=== PATIENT | male | born 1945 | race Caucasian/White ===

== ENCOUNTER 2023-02-11 14:59 | Emergency (ER) | payer OTHER ==
[2023-02-11] MEDS ORDERED: Boostrix 0.5 ML (Tdap) VIAL (>/=7 yrs of age) ONE (16:21)
== END 2023-02-11 17:02 ==
LOC: CSHERS 14:59 → EEVIPCON 14:59 → CSHERS 17:02
DX: S01.112A Laceration without foreign body of left eyelid and periocular area, initial encounter (principal); K21.9 Gastro-esophageal reflux disease without esophagitis; I10 Essential (primary) hypertension; Z23 Encounter for immunization; W01.0XXA Fall on same level from slipping, tripping and stumbling without subsequent striking against object, initial encounter
CPT/HCPCS: 70450; 70486; 90471; 90715

== ENCOUNTER 2023-06-17 13:18 | Emergency (ER) | payer OTHER ==
[~2023-06-17 13:18] MED LIST: Iopamidol 300 61% 100 ML VIAL FS ONE
[2023-06-17 15:06] LABS: #Eosinphils 0.1 10x3/uL (0.0-0.5); #Monocytes 1.1 10x3/uL (0.0-1.1); #Neutrophils 13.7 10x3/uL (1.5-8.4); %Basophils 0.2 % (0.0-2.0); %Eosinophils 0.4 % (0.0-6.0); %Lymphocytes 7.6 % (18.0-47.0); %Monocytes 6.5 % (0.0-10.0); %Neutrophils 84.4 % (40.0-75.0); Hematocrit 40.3 % (38.8-50.0); Hemoglobin 13.2 g/dL (13.5-17.5); Mean Corpuscular HGB CONC 32.8 g/dL (32.0-36.0); Mean Corpuscular Hemoglobin 30.4 pg (27.0-33.0); Mean Corpuscular Volume 92.9 fl (81.2-95.1); Mean Platelet Volume 11.4 fl (7.4-10.4); Platelet Count 201 10x3/uL (150-450); Red Blood Cell (RBC) Count 4.34 10x6/uL (4.32-5.72); White Blood Cell (WBC) Count 16.2 10x3/uL (3.5-10.5)
[2023-06-17 15:22] LABS: Troponin I Less than 0.010 ng/mL (< 0.028)
[2023-06-17 15:25] LABS: ALT (SGPT) 15 U/L (8-55); AST (SGOT) 19 U/L (5-34); Albumin 3.8 g/dL (3.4-4.8); Alkaline Phosphatase 100 U/L (40-110); Anion Gap 15 mmol/L (10-20); BUN (Urea Nitrogen) 14 mg/dL (8.4-25.7); Bilirubin, Total 0.4 mg/dL (0.2-1.2); Calc. Creatinine Clearance 0 mL/min (70-130); Calcium 8.3 mg/dL (7.8-10.44); Carbon Dioxide 25 mmol/L (23-31); Chloride 104 mmol/L (98-107); Estimated GFR 81; Globulin 2.5 g/dL (2.4-3.5); Glucose 127 mg/dL (83-110); Potassium 3.7 mmol/L (3.5-5.1); Protein, Total 6.3 g/dL (5.8-8.1); Sodium 140 mmol/L (136-145)
[2023-06-17] MEDS ORDERED: Ondansetron PF 4 MG/2 ML Vial ONE (15:55)
[2023-06-17] MEDS ORDERED: Morphine 4 MG/ML VIAL ONE (15:55)
== END 2023-06-17 19:37 | disposition short-term general hospital (02) ==
LOC: CSHERS 13:18
DX: S32.442A Displaced fracture of posterior column [ilioischial] of left acetabulum, initial encounter for closed fracture (principal); K21.9 Gastro-esophageal reflux disease without esophagitis; W18.30XA Fall on same level, unspecified, initial encounter; Y92.091 Bathroom in other non-institutional residence as the place of occurrence of the external cause
CPT/HCPCS: 70450; 71260; 72125; 74177; 80053; 84484; 85025; 93005; 96374; 96375; J2270; J2405; Q9967